=== PATIENT | female | born 1990 | race Caucasian/White ===

== ENCOUNTER 2017-11-04 15:50 | Emergency (ER) | payer SELFPAY ==
[~2017-11-04] VITALS: Ht 177.8 cm; Wt 81.6 kg
[~2017-11-04 15:50] MED LIST: COLACE100 MG PO; FLEXERIL10 MG PO; HYDROCODONE BIT1 T11 PO; IRON250 MG PO; IRON325 M1 PO; MACROBID100 M1 PO; MAXARON FORTE1 CAP PO; MEDROL DOSEPAK4 MG PO; MOTRIN 800 MG E4 TAB PO; MOTRIN800 MG; MOTRIN800 MG PO; PERCOCET 325 MG1 TA1 PO; PERCOCET 325 MG1 TA2 PO; PRENATAL1 TA1 PO; ULTRAM50 MG PO; ZOFRAN ODT4 MG SL
[2017-11-04] MEDS ORDERED: Motrin,Rufen800 MG PO (17:51)
[2017-11-04] MEDS ORDERED: ULTRAM50 MG PO (17:51)
== END 2017-11-04 18:15 | disposition home or self-care (01) ==
LOC: ED 15:50
DX: S46.911A Strain of unspecified muscle, fascia and tendon at shoulder and upper arm level, right arm, initial encounter (principal); S66.912A Strain of unspecified muscle, fascia and tendon at wrist and hand level, left hand, initial encounter; Y04.2XXA Assault by strike against or bumped into by another person, initial encounter; Y93.89 Activity, other specified; Y92.89 Other specified places as the place of occurrence of the external cause; Y99.8 Other external cause status